=== PATIENT | male | born 1985 | race Caucasian/White ===

== ENCOUNTER 2016-08-31 00:17 | Emergency (ER) | payer OTHER | END 2016-08-31 04:22 | disposition home or self-care (01) | LOC: ER1 00:17 | DX: S51.851A Open bite of right forearm, initial encounter (principal); F17.210 Nicotine dependence, cigarettes, uncomplicated; W50.3XXA Accidental bite by another person, initial encounter | CPT/HCPCS: 80074; 86701; 86702; 99283 ==

== ENCOUNTER → 2020-08-03 | Outpatient (CLI) | payer OTHER | LOC: EMI 12:58 | DX: S83.522A Sprain of posterior cruciate ligament of left knee, initial encounter (principal); V89.2XXA Person injured in unspecified motor-vehicle accident, traffic, initial encounter | CPT/HCPCS: 73721 ==